=== PATIENT | male | born 1945 | race Caucasian/White ===

== ENCOUNTER 2021-08-13 15:35 | Outpatient (REF) | payer MEDICARE, BC, SELFPAY ==
[2021-08-15 15:54] LABS: COVID-19 RT-PCR UVMMC Result Negative (Negative)
== END 2021-08-13 15:36 | disposition home or self-care (01) ==
LOC: LBN 15:35
PROVIDERS: Visit Provider Physician Assistant
DX: Z20.822 Contact with and (suspected) exposure to COVID-19 (principal)
CPT/HCPCS: U0003

== ENCOUNTER 2021-09-22 15:52 | Outpatient (CLI) | payer MEDICARE, BC, SELFPAY ==
--- NOTE | 2021-09-22 15:00 | DI.RAD_ITS ---
Exam(s) XR FOOT LT COMPLETE EXAM: XR FOOT LT COMPLETE CLINICAL HISTORY: foot and ankle pain after fall M79.606. TECHNIQUE: 2D digital imaging was performed. COMPARISON: No exams were available for comparison FINDINGS: BONES: No acute fracture is present. No bony destructive lesion is seen. JOINTS: No dislocation present. Degenerative changes 1st MTP joint and hallux valgus. SOFT TISSUE: Normal. IMPRESSION: Hallux valgus. No evidence of fracture. DATA REPOSITORY: RADIATION DOSE DELIVERED:
--- NOTE | 2021-09-22 15:00 | DI.RAD_ITS ---
Exam(s) XR ANKLE LT COMPLETE EXAM: XR ANKLE LT COMPLETE CLINICAL HISTORY: foot and ankle pain after fall M79.606 TECHNIQUE: 2D digital imaging was performed. COMPARISON: No exams were available for comparison FINDINGS: BONES: No acute fracture is present. No bony destructive lesion is seen. JOINTS:The ankle mortise is normally aligned. Ankle joint space is well maintained. Mild degenerativ e changes. SOFT TISSUE: Normal. IMPRESSION: Mild degenerative changes. No acute abnormality.. DATA REPOSITORY: RADIATION DOSE DELIVERED:
== END 2021-09-22 16:12 ==
PROVIDERS: Visit Provider Physician Assistant
DX: M25.572 Pain in left ankle and joints of left foot (principal); M20.12 Hallux valgus (acquired), left foot; M19.072 Primary osteoarthritis, left ankle and foot
CPT/HCPCS: 73610; 73630